=== PATIENT | female | born 1960 | race Caucasian/White ===

== ENCOUNTER 2018-09-02 07:23 | Day surgery (SDC) | payer BC ==
[~2018-09-02 07:23] MED LIST: Buffered Lidocaine 1% SYRIN* 1 ML/SYRINGE INTRADERM ONE; Dexamethasone IV* 4 MG/ML 1 ML (4 MG) IV SLOW PU ONE; Famotidine IV* 10 MG/ML 2 ML (20 mg) IV ONE; Lactated Ringers 1000 ML Bag* 1,000 ML IV SCH
[2018-09-02] MEDS ORDERED: Dexamethasone IV* 4 MG/ML 1 ML (4 MG) ONE (07:36)
[2018-09-02] MEDS ORDERED: Buffered Lidocaine 1% SYRIN* 1 ML/SYRINGE INTRADERM ONE (07:36)
[2018-09-02] MEDS ORDERED: Famotidine IV* 10 MG/ML 2 ML (20 mg) ONE (07:36)
[2018-09-02] MEDS ORDERED: fentaNYL* 50 MCG/ML 2 ML VIAL (100 MCG VIAL) ONE (08:42)
[2018-09-02] MEDS ORDERED: Midazolam* 1 MG/ML 2 ML VIAL (2 MG) ONE (08:43)
[2018-09-02] MEDS ORDERED: Lidocaine 1% w EPI 1:100,000* 30 ML VIAL ONE (08:48)
[2018-09-02] MEDS ORDERED: Lidocaine 1% INJ* 10 MG/ML 30 ML SDV ONE (08:50)
[2018-09-02] MEDS ORDERED: Propofol* 10 MG/ML 20 ML BTL ONE (09:21)
[2018-09-02] MEDS ORDERED: oxyCODONE/Acetamin 5/325 MG* TAB PO PRN (10:13)
[2018-09-02 10:49] VITALS: BP 135/86
[2018-09-02] MEDS ORDERED: Lactated Ringers 1000 ML Bag* 1,000 ML IV SCH (11:00)
[2018-09-02] MEDS ORDERED: Naloxone* 0.4 MG/ML 1 ML VIAL IV PRN (11:05)
--- NOTE | 2018-09-02 11:49 | OP ---
CC: [facility] OPERATIVE REPORT: DATE OF OPERATION: 09/02/18 DATE OF : 60 SURGEON: Scottie Clark MD ANESTHESIOLOGIST: Dr. Coronado. ANESTHESIA: Sedation and local. PRE-OP DIAGNOSIS: Vaginal cyst. POST-OP DIAGNOSIS: Vaginal cyst. OPERATIVE PROCEDURE: Excision of posterior wall vaginal cyst. ESTIMATED BLOOD LOSS: Less than 20 cc. SPECIMEN: Vaginal cyst. FLUIDS: Per Anesthesia. FINDINGS: Approximately 3 cm soft, fluid-filled, round cystic mass at the posterior introitus. The cyst was filled with brown, green fluid. On rectal exam, the rectum and anus were intact with no communication with the cyst. 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 The skin around the anus was symmetrically white in appearance. There were no ulcers or raised lesions. There was a rectocele that is grade 2 to 3. COMPLICATIONS: None. COUNTS: Sponge, lap and needle count were correct x2. CONDITION: The patient was brought to the recovery room, awake and in stable condition. DESCRIPTION OF PROCEDURE: The patient was brought to the operating room. When sedation was found to be adequate, the patient was prepped and draped in the usual sterile fashion in the dorsal lithotomy position. Time-out was performed. Exam under anesthesia was performed. The area of the cyst was instilled with 1% lidocaine, tested, and the patient had excellent anesthesia. An incision was made over the cyst and the cyst was dissected out, intact from the posterior vaginal wall. The cyst was sent to Pathology. There was brown, greenish fluid within the cyst. The rectal exam was performed. There was no communication between the vagina and the rectum. 3-0 Vicryl suture was used to close the first layer and again a rectal exam was performed, no stitches were felt within the rectum. The remaining posterior vagina was closed in 2 layers using 2-0 Vicryl suture. Excellent hemostasis was obtained. Sponge and needle count were correct x2. The patient was brought to recovery room, awake and in stable condition. [id number] #: [id number] MTDD
== END 2018-09-02 10:48 | disposition home or self-care (01) ==
LOC: OR 07:23
PROVIDERS: ATTEND Obstetrics & Gynecology
DX: N89.8 Other specified noninflammatory disorders of vagina (principal); G47.33 Obstructive sleep apnea (adult) (pediatric); J45.909 Unspecified asthma, uncomplicated
CPT/HCPCS: 88304; 88313; 88341; 88342; J1100; J2250; J2704; J3010